=== PATIENT | female | born 1970 | race Caucasian/White ===

== ENCOUNTER → 2020-12-19 07:29 | Outpatient (CLI) | payer SELFPAY ==
--- NOTE | ~2020-12-19 | US_ITS ---
EXAMINATION: US thyroid DATE: 12/19/2020 07:48 INDICATION: Goiter. TECHNIQUE: Multiple ultrasound images of the thyroid were obtained. COMPARISON: None. FINDINGS: The right thyroid lobe measures 3.6 x 1.1 x 1.1 cm. The left thyroid lobe measures 4.1 x 0.9 x 1.4 c m. There is normal echotexture and echogenicity throughout the thyroid gland. No discrete nodules id entified. Normal vascular flow is present. IMPRESSION: 1. Normal thyroid. Reviewed, dictated and finalized at location A. IMPRESSION: 1. Normal thyroid.
== END ==
PROVIDERS: PCP Family Medicine; Visit Provider Family Medicine
DX: E04.9 Nontoxic goiter, unspecified (principal)
CPT/HCPCS: 76536

== ENCOUNTER 2023-03-08 09:56 | Outpatient (CLI) | payer BC, SELFPAY ==
--- NOTE | ~2023-03-08 | MR_ITS ---
MRI of the cervical spine Clinical History: Chronic neck pain Technique: Axial T2-weighted and gradient images, and sagittal T1-weighted, T2-weighted, and STIR uriel ges were acquired. Findings: There is no fracture or subluxation of the cervical spine. Vertebral bodies maintain normal height and alignment. No suspicious bone marrow signal abnormality seen. At C2-C3, there is no significant disc bulge. No spinal canal stenosis, cord compression, or neural f oraminal narrowing identified. At C3-C4, there is minimal disc osteophyte complex. No efrain spinal canal stenosis or cord compressio n. Bilateral neural foramina are preserved. At C4-C5, there is disc osteophyte complex, with mild canal stenosis but no efrain cord compression. T here is right neural foraminal narrowing. Left neural foramen preserved. At C5-C6, there is mild disc osteophyte complex. No efrain spinal canal stenosis or cord compression. There is right neural foraminal narrowing. Left neural foramen preserved. At C6-C7, no definite disc bulge or herniation seen. No spinal canal stenosis, cord compression, or n eural foraminal narrowing. No abnormal signal evident in the spinal cord. Paravertebral soft tissues are unremarkable. Impression: Mild degenerative spondylosis, as above. Reviewed, dictated and finalized at location . Impression: Mild degenerative spondylosis, as above.
== END 2023-03-08 09:57 ==
PROVIDERS: PCP Family Medicine; Visit Provider Family Medicine
DX: M47.892 Other spondylosis, cervical region (principal)
CPT/HCPCS: 72141